=== PATIENT | male | born 1975 | race American Indian/Alaskan Native ===

== ENCOUNTER 2021-05-10 10:27 | Emergency (ER) | payer MEDICARE ==
[2021-05-10 12:07] VITALS: BP 132/79
--- NOTE | 2021-05-10 12:55 | Emergency Department Report ---
ED General Adult HPI - General Chief complaint: High BP Stated complaint: BLOOD PRESSURE HIGH Time Seen by Provider: 05/10/21 12:08 Source: patient Mode of arrival: Ambulatory Limitations: No Limitations - History of Present Illness Initial comments: This is a 45-year-old male nontoxic, well nourished in appearance, no acute signs of distress presents to the ED for high blood pressure. Patient otherwise denies any symptoms or complaints. Patient stated he took his blood pressure this morning and stated was reading in the high 100s. Patient otherwise denies taking previous blood pressure readings. Patient denies any chest pain, shortness of breath, fever, chills, nausea, vomiting, headache, stiff neck, numbness, tingling or blurry vision. Patient denies any allergies or significant past medical history. Patient also stated that he has a primary care doctor appointment on the of this month. Severity scale (0 -10): 0 Improves with: none Worsens with: none Associated Symptoms: denies other symptoms. denies: confusion, chest pain, c ough, diaphoresis, fever/chills, headaches, loss of appetite, malaise, nausea/vomiting, rash, seizure, shortness of breath, syncope, weakness Treatments Prior to Arrival: none - Related Data Allergies Allergy/AdvReac Type Severity Reaction Status Date / Time No Known Allergies Allergy Unverified 05/10/21 12:01 ED Review of Systems ROS: Stated complaint: BLOOD PRESSURE HIGH Other details as noted in HPI Comment: All other systems reviewed and negative Constitutional: denies: chills, fever Eyes: denies: eye pain, eye discharge, vision change ENT: denies: ear pain, throat pain Respiratory: denies: cough, shortness of breath, wheezing Cardiovascular: denies: chest pain, palpitations Endocrine: no symptoms reported Gastrointestinal: denies: abdominal pain, nausea, diarrhea Genitourinary: denies: urgency, dysuria Musculoskeletal: denies: back pain, joint swelling, arthralgia Skin: denies: rash, lesions Neurological: denies: headache, weakness, paresthesias Psychiatric: denies: anxiety, depression Hematological/Lymphatic: denies: easy bleeding, easy bruising ED Physical Exam - General Limitations: No Limitations General appearance: alert, in no apparent distress - Head Head exam: Present: atraumatic, normocephalic - Eye Eye exam: Present: normal appearance - ENT ENT exam: Present: normal exam - Neck Neck exam: Present: normal inspection, full ROM. Absent: lymphadenopathy - Respiratory Respiratory exam: Present: normal lung sounds bilaterally. Absent: respiratory distress, wheezes, rales, rhonchi, stridor, chest wall tenderness, accessory muscle use, decreased breath sounds, prolonged expiratory - Cardiovascular Cardiovascular Exam: Present: regular rate, normal rhythm, normal heart sounds. Absent: bradycardia, tachycardia, irregular rhythm, systolic murmur, diastolic murmur, rubs, gallop - GI/Abdominal GI/Abdominal exam: Present: soft, normal bowel sounds. Absent: distended, tenderness, guarding, rebound, rigid - Extremities Exam Extremities exam: Present: normal inspection, full ROM - Back Exam Back exam: Present: normal inspection, full ROM. Absent: tenderness, CVA tenderness (R), CVA tenderness (L), muscle spasm, paraspinal tenderness, vertebral tenderness, rash noted - Neurological Exam Neurological exam: Present: alert, oriented X3, normal gait - Psychiatric Psychiatric exam: Present: normal affect, normal mood - Skin Skin exam: Present: warm, dry, intact, normal color. Absent: rash ED Course Vital Signs 05/10/21 12:06 Temperature 98 F Pulse Rate 67 Respiratory 20 Rate Blood Pressure 132/79 [Right] O2 Sat by Pulse 99 Oximetry - Reevaluation(s) Reevaluation #1: 05/10/21 12:55 Patient is speaking in full sentences with no signs of distress noted. ED Medical Decision Making - Medical Decision Making 45-year-old that presents with concerns of high blood pressure. Patient is stable and was examined by me. Physical exam otherwise is unremarkable. Currently blood pressure and vital signs in the ED are within normal limits. According to ACEP: (1) in ED patients with asymptomatic markedly elevated blood pressure, routine screening for acute target organ injury (eg, serum creatinine, urinalysis, ECG) is not required. (1) In patients with asymptomatic markedly elevated blood pressure, routine ED medical intervention is not required. Patient was instructed to follow-up with a primary care doctor in 3-5 days or if symptoms worsen and continue return to emergency room as soon as possible. At time of discharge, the patient does not seem toxic or ill in appearance. No acute signs of distress noted. Patient agrees to discharge treatment plan of care. No further questions noted by the patient. The patient was evaluated in the emergency department for symptoms described in the history of present illness. He/she was evaluated in the context of the global COVID-19 pandemic, which necessitated consideration that the patient might be at risk for infection with the virus that causes COVID-19. Institutional protocols and algorithms that pertain to the evaluation of patients at risk for COVID-19 are in a state of rapid change based on information released by regulatory bodies including the CDC and federal and state organizations. These policies and algorithms were followed during the patient's care in the emergency department. Please note that these policies, procedures and recommendations changed on a rapid basis. Critical care attestation.: If time is entered above; I have spent that time in minutes in the direct care of this critically ill patient, excluding procedure time. ED Disposition Clinical Impression: Normal physical exam Disposition: 01 HOME / SELF CARE / HOMELESS Is pt being admited?: No Does the pt Need Aspirin: No Condition: Stable Additional Instructions: Follow-up with a primary care doctor in 3-5 days or if symptoms worsen and continue return to emergency room as soon as possible. Referrals: PRIMARY MD ELIZA [Primary Care Provider] - 3-5 Days CHELSEA ELAINE MD [Staff Physician] - 3-5 Days Time of Disposition: 12:56
== END 2021-05-10 13:12 | disposition home or self-care (01) ==
LOC: ED 10:27
DX: R03.0 Elevated blood-pressure reading, without diagnosis of hypertension (principal)
CPT/HCPCS: 99282

== ENCOUNTER 2021-10-05 16:46 | Emergency (ER) | payer MEDICAID, MEDICARE ==
[2021-10-05 17:16] VITALS: BP 164/86
[2021-10-06] MEDS ORDERED: PENICILLIN G BENZATHINE 1.2 MILLION UNIT/2 ML INJ IM STA (00:15)
--- NOTE | 2021-10-06 00:22 | Emergency Department Report ---
ED Male HPI - General Chief complaint: Sore Throat Stated complaint: STREP THROAT/STD CHECK Source: patient Mode of arrival: Ambulatory Limitations: No Limitations - History of Present Illness Initial comments: 45-year-old male presents emerged department complaining of a few day history of progressively worsening sore throat of an unknown etiology associated with odynophagia and dysphagia. Ports no fever, chills, sweats, chest pain, palpitations, hemoptysis, hematemesis, hematochezia Complaint: penile discharge, other - Related Data Allergies Allergy/AdvReac Type Severity Reaction Status Date / Time No Known Allergies Allergy Unverified 05/10/21 12:01 ED Review of Systems ROS: Stated complaint: STREP THROAT/STD CHECK Other details as noted in HPI Comment: All other systems reviewed and negative ED Past Medical Hx - Past Medical History Previous Medical History?: No - Surgical History Past Surgical History?: No - Social History Smoking Status: Current Every Day Smoker ED Physical Exam - General Limitations: No Limitations General appearance: alert, in no apparent distress - Head Head exam: Present: atraumatic, normocephalic - Eye Eye exam: Present: normal appearance - ENT ENT exam: Present: mucous membranes moist, other (Pharynx red with some erythema and swelling no exudate noted. Tongue uvula midline. No stridor. Tongue.) - Neck Neck exam: Present: normal inspection, lymphadenopathy - Respiratory Respiratory exam: Present: normal lung sounds bilaterally. Absent: respiratory distress - Cardiovascular Cardiovascular Exam: Present: regular rate, normal rhythm. Absent: systolic murmur, diastolic murmur, rubs, gallop - GI/Abdominal GI/Abdominal exam: Present: soft, normal bowel sounds - Rectal Rectal exam: Present: deferred - Extremities Exam Extremities exam: Present: normal inspection - Back Exam Back exam: Present: normal inspection - Neurological Exam Neurological exam: Present: alert, oriented X3 - Psychiatric Psychiatric exam: Present: normal affect, normal mood - Skin Skin exam: Present: warm, dry, intact, normal color. Absent: rash ED Course Vital Signs 10/05/21 17:11 Temperature 100.5 F H Pulse Rate 65 Respiratory 16 Rate Blood Pressure 164/86 O2 Sat by Pulse 98 Oximetry Critical care attestation.: If time is entered above; I have spent that time in minutes in the direct care of this critically ill patient, excluding procedure time. ED Disposition Clinical Impression: Pharyngitis, Possible exposure to STD Disposition: HOME / SELF CARE / HOMELESS Is pt being admited?: No Does the pt Need Aspirin: No Condition: Stable Instructions: Pharyngitis, Sore Throat Additional Instructions: Please be sure to follow-up with health department for your full STD panel [facility]
[2021-10-06 01:13] LABS: Bilirubin,Urine NEG (Negative); Blood,Urine NEG (Negative); Color,Urine Yellow (Yellow); Protein,Urine <15 mg/dL mg/dL (Negative); Urobilinogen,Urine < 2.0 mg/dL (<2.0)
[2021-10-06 01:25] LABS: Mucus,Urine FEW /HPF
== END 2021-10-06 01:15 | disposition home or self-care (01) ==
LOC: ED 16:46
DX: J02.9 Acute pharyngitis, unspecified (principal); Z20.2 Contact with and (suspected) exposure to infections with a predominantly sexual mode of transmission; F17.290 Nicotine dependence, other tobacco product, uncomplicated
CPT/HCPCS: 81001; 87086; 96372; 99283; J0561

== ENCOUNTER 2021-12-24 09:47 | Emergency (ER) | payer SELFPAY ==
[2021-12-24 11:19] VITALS: BP 158/77
[2021-12-24] MEDS ORDERED: LIDOCAINE (1%) 10 MG/1 ML VIAL 20 ML MDV INFILTRATI ONE (12:44)
[2021-12-24] MEDS ORDERED: LIDOCAINE-MPF (1%) 10 MG/1 ML VIAL 5 ML INFILTRATI ONE (12:44)
--- NOTE | 2021-12-24 12:45 | Emergency Department Report ---
Abscess Boil HPI - HPI Chief Complaint: Skin/Abscess/Foreign Body Stated Complaint: BOIL /IRRATION WHEN URINE Time Seen by Provider: 12/24/21 12:43 Duration: >1 Week Location: Other Severity: Mild History: Yes Pain, Yes Purulent Drainage, No Fever, No Numbness, No Foreign Body, No Previous History, No Insect Bite HPI: 46 YO COMES TO ER WITH 2 CONCERNS: 1. CO FOR STD- NO DISCHARGE. 2. ABSCESS ON CHEST THAT HE HAD OPENED HIMSELF BUT STILL HAVING PAIN. NO DRAINAGE AT THIS TIME. NO FEVER. NO CHILLS Home Medications: Previous Rx's Medication Instructions Recorded Last Taken Type cephALEXin [Keflex] 500 mg PO Q12HR #20 cap 12/24/21 Unknown Rx Allergies/Adverse Reactions: Allergies Allergy/AdvReac Type Severity Reaction Status Date / Time No Known Allergies Allergy Verified 12/24/21 11:19 ED Review of Systems ROS: Stated complaint: BOIL /IRRATION WHEN URINE Other details as noted in HPI Comment: All other systems reviewed and negative ED Past Medical Hx - Past Medical History Previous Medical History?: No - Surgical History Past Surgical History?: No - Family History Family history: no significant - Social History Smoking Status: Current Every Day Smoker - Medications Home Medications: Home Medications Medication Instructions Recorded Confirmed Last Taken Type cephALEXin [Keflex] 500 mg PO Q12HR #20 cap 12/24/21 Unknown Rx ED Abscess Boil Physical Exam - Exam General: Vital signs noted. No distress. Alert and acting appropriately. Size: 5 cm Exam: Yes Tenderness, Yes Fluctuance, Yes Normal Neurologic Exam, Yes Normal Circulation, No Surrounding Cellulites/Erythema, No Lymphangitis, No Crepitation, No Heart Murmur I & D Note - I & D Note I & D Note: 1% LIDO 3 ML. WOUND CLEANED. OPENED WITH 10 BLADE. HEMOSTATS TO EXPLORE FOR SAC OF DRAINAGE. MODERATE AMOUNT DISCHARGE. TOLERATED WELL ED Course Vital Signs 12/24/21 11:14 Temperature 97.7 F Pulse Rate 75 Respiratory 18 Rate Blood Pressure 158/77 [Right] O2 Sat by Pulse 98 Oximetry Critical care attestation.: If time is entered above; I have spent that time in minutes in the direct care of this critically ill patient, excluding procedure time. ED Medical Decision Making - Medical Decision Making I/D OF CHEST ABSCESS Vital Signs 12/24/21 11:14 Temperature 97.7 F Pulse Rate 75 Respiratory 18 Rate Blood Pressure 158/77 [Right] O2 Sat by Pulse 98 Oximetry UA PENDING ROCEPHIN 1 GM IM PT INFORMED WE DO NOT DO EMPIRIC STD TESTING HE IS GOING HOME ON KEFLEX FOR ABSCESS CALL IF URINE CULTURE REQUIRES CHANGE IN ANTIBIOTICS DC HOME WITH DC PLAN OF CARE INCLUDING DIET, MEDS, ACTIVITY AND FOLLOW UP - Differential Diagnosis SIMPLE ABSCESS/STI CONCERNS ED Disposition Clinical Impression: Skin abscess, Concern about STD in male without diagnosis Disposition: HOME / SELF CARE / HOMELESS Is pt being admited?: No Does the pt Need Aspirin: No Condition: Stable Instructions: Skin Abscess Additional Instructions: KEEP WOUND CLEAN AND DRY SOAK WITH EPSOM SALTS WE DISCUSSED MOTRIN OR TYLENOL FOR PAIN ANTIBIOTICS ORDERED TODAY UNTIL GONE Prescriptions: cephALEXin [Keflex] 500 mg PO Q12HR #20 cap Referrals: CHARLINE GARNICA MD [Primary Care Provider] - 3-5 Days CHELSEA ELAINE MD [Staff Physician] - 3-5 Days Forms: Work/School Release Form(ED) Time of Disposition: 15:36
[2021-12-24] MEDS ORDERED: HYDROcodone/ACETAMINOPHEN 5-325 MG TAB PO ONE (14:00)
[2021-12-24] MEDS ORDERED: TETANUS,DIPHTHERIA TOXOID ADULT 0.5 ML INJ IM SCH (14:00)
[2021-12-24 16:46] LABS: Mucus,Urine FEW /HPF
[2021-12-24 16:49] LABS: Color,Urine Straw (Yellow)
== END 2021-12-24 18:58 | disposition home or self-care (01) ==
LOC: ED 09:47
DX: L02.91 Cutaneous abscess, unspecified (principal); Z20.2 Contact with and (suspected) exposure to infections with a predominantly sexual mode of transmission; F17.200 Nicotine dependence, unspecified, uncomplicated
CPT/HCPCS: 81001; 96372; 99283; J0696; J3490

== ENCOUNTER 2022-01-07 17:28 | Emergency (ER) | payer MEDICAID ==
[2022-01-07 17:53] VITALS: BP 141/85
[2022-01-07] MEDS ORDERED: IBUPROFEN 800 MG TAB PO ONE (21:24)
--- NOTE | 2022-01-07 22:07 | XRay Report ---
CHEST 2 VIEWS INDICATION / CLINICAL INFORMATION: fever cough. COMPARISON: None available. FINDINGS: SUPPORT DEVICES: None. HEART / MEDIASTINUM: No significant abnormality. LUNGS / PLEURA: No significant pulmonary or pleural abnormality. No pneumothorax. ADDITIONAL FINDINGS: Coarse calcification in the right upper quadrant within the liver. IMPRESSION: 1. No acute findings. 2. Coarse calcifications in the right upper quadrant in the region of the liver. Findings could be re lated to prior granulomatous disease, calcified hemangioma, or potentially other calcified lesion. Re commend further evaluation with multiphase liver CT on a nonemergent/outpatient basis. Signer Name: Chepe Alvarez MD Signed: 01/07/2022 10:02 PM Workstation Name: [email or web address]
[2022-01-07 23:11] LABS: Basophils % (Auto) 0.3 % (0.0-1.8); Eosinophils % (Auto) 0.8 % (0.0-4.3); Hematocrit 40.3 % (35.5-45.6); Hemoglobin 13.2 gm/dl (11.8-15.2); Lymphocytes # (Auto) 0.6 K/mm3 (1.2-5.4); Lymphocytes % (Auto) 9.6 % (13.4-35.0); Mean Corpuscular HGB Conc 33 % (32-34); Mean Corpuscular Volume 96 fl (84-94); Monocytes # (Auto) 0.6 K/mm3 (0.0-0.8); Monocytes % (Auto) 9.2 % (0.0-7.3); Platelet Count 246 K/mm3 (140-440); Red Blood Count 4.22 M/mm3 (3.65-5.03); Red Cell Distribution Width 13.9 % (13.2-15.2)
[2022-01-07 23:31] LABS: Alanine Aminotransferase 31 units/L (7-56); Albumin 4.5 g/dL (3.9-5); BUN/Creatinine Ratio 14; Blood Urea Nitrogen 13 mg/dL (9-20); Calcium 8.8 mg/dL (8.4-10.2); Hemolysis Index 16
--- NOTE | 2022-01-07 23:56 | Emergency Department Report ---
ED General Adult HPI - General Chief complaint: Fever Stated complaint: COVID /LEG PAIN Time Seen by Provider: 01/07/22 21:23 Source: patient Mode of arrival: Ambulatory Limitations: No Limitations - History of Present Illness Initial comments: Patient 46-year-old male who presents for fever cough body aches extremity pain times today. Patient denies history of asthma denies other medical history. Patient is not COVID vaccinated. Patient denies nausea or vomiting. There is no chest pain or shortness of breath. Symptoms are exacerbated by activity. Symptoms are relieved by nothing tried. Severity scale (0 -10): 7 - Related Data Previous Rx's Medication Instructions Recorded Last Taken Type cephALEXin [Keflex] 500 mg PO Q12HR #20 cap 12/24/21 Unknown Rx Ibuprofen [Motrin 800 MG tab] 800 mg PO Q8HR PRN #30 tablet 01/08/22 Unknown Rx Ondansetron [Zofran Odt] 4 mg PO Q8HR PRN #12 tab.rapdis 01/08/22 Unknown Rx Allergies Allergy/AdvReac Type Severity Reaction Status Date / Time No Known Allergies Allergy Verified 12/24/21 11:19 ED Review of Systems ROS: Stated complaint: COVID /LEG PAIN Other details as noted in HPI Constitutional: chills, fever, malaise Eyes: denies: eye pain, eye discharge, vision change ENT: denies: ear pain, throat pain Respiratory: denies: cough, shortness of breath, wheezing Cardiovascular: denies: chest pain, palpitations Endocrine: no symptoms reported Gastrointestinal: denies: abdominal pain, nausea, vomiting, diarrhea Genitourinary: denies: urgency, dysuria Musculoskeletal: other Skin: denies: rash, lesions Neurological: denies: headache, weakness, numbness, paresthesias, confusion, vertigo Psychiatric: denies: anxiety, depression Hematological/Lymphatic: denies: easy bleeding, easy bruising ED Past Medical Hx - Past Medical History Previous Medical History?: No - Surgical History Past Surgical History?: No - Social History Smoking Status: Unknown if ever smoked Substance Use Type: None - Medications Home Medications: Home Medications Medication Instructions Recorded Confirmed Last Taken Type cephALEXin [Keflex] 500 mg PO Q12HR #20 cap 12/24/21 Unknown Rx Ibuprofen [Motrin 800 MG tab] 800 mg PO Q8HR PRN #30 tablet 01/08/22 Unknown Rx Ondansetron [Zofran Odt] 4 mg PO Q8HR PRN #12 tab.holdendis 01/08/22 Unknown Rx ED Physical Exam - General Limitations: No Limitations General appearance: alert, in no apparent distress - Head Head exam: Present: normocephalic, normal inspection - Eye Eye exam: Present: PERRL, EOMI Pupils: Present: normal accommodation - ENT ENT exam: Present: normal orophraynx, mucous membranes moist - Neck Neck exam: Present: normal inspection, full ROM. Absent: tenderness, lymphade nopathy - Respiratory Respiratory exam: Present: normal lung sounds bilaterally. Absent: respiratory distress, wheezes, stridor - Cardiovascular Cardiovascular Exam: Present: regular rate, normal rhythm, normal heart sounds. Absent: systolic murmur, diastolic murmur, rubs, gallop - GI/Abdominal GI/Abdominal exam: Present: soft. Absent: distended, tenderness - Rectal Rectal exam: Present: deferred - Extremities Exam Extremities exam: Present: normal inspection, full ROM, normal capillary refill. Absent: tenderness - Back Exam Back exam: Present: normal inspection, full ROM. Absent: CVA tenderness (R), CVA tenderness (L) - Neurological Exam Neurological exam: Present: alert, oriented X3, CN II-XII intact, normal gait, reflexes normal. Absent: motor sensory deficit - Expanded Neurological Exam Expanded Patient oriented to: Present: person, place, time Speech: Present: fluid speech Motor strength exam: RUE: 5, LUE: 5, RLE: 5, LLE: 5 Best Eye Response (Mary): (4) open spontaneously Best Motor Response (Mary): (6) obeys commands Best Verbal Response (Mary): (5) oriented [place] Total: 15 - Psychiatric Psychiatric exam: Present: normal affect, normal mood - Skin Skin exam: Present: warm, dry, intact, normal color. Absent: rash ED Course Vital Signs 01/07/22 17:51 Temperature 101.1 F H Pulse Rate 93 H Respiratory 18 Rate Blood Pressure 141/85 O2 Sat by Pulse 100 Oximetry ED Medical Decision Making - Lab Data Result diagrams: 01/07/22 22:38 01/07/22 22:38 Labs 01/07/22 01/07/22 22:38 22:38 WBC 6.2 RBC 4.22 Hgb 13.2 Hct 40.3 MCV 96 H MCH 31 MCHC 33 RDW 13.9 Plt Count 246 Lymph % (Auto) 9.6 L Frontier % (Auto) 9.2 H Eos % (Auto) 0.8 Baso % (Auto) 0.3 Lymph # (Auto) 0.6 L Frontier # (Auto) 0.6 Eos # (Auto) 0.0 Baso # (Auto) 0.0 Seg Neutrophils % 80.1 H Seg Neutrophils # 5.0 Sodium 138 Potassium 4.0 Chloride 103.9 Carbon Dioxide 22 Anion Gap 16 BUN 13 Creatinine 0.9 Estimated GFR > 60 BUN/Creatinine Ratio 14 Glucose 85 Calcium 8.8 Total Bilirubin 0.30 AST 39 ALT 31 Alkaline Phosphatase 74 Total Protein 7.2 Albumin 4.5 Albumin/Globulin Ratio 1.7 Labs 01/07/22 01/07/22 01/08/22 22:38 22:38 Unknown WBC 6.2 RBC 4.22 Hgb 13.2 Hct 40.3 MCV 96 H MCH 31 MCHC 33 RDW 13.9 Plt Count 246 Lymph % (Auto) 9.6 L Frontier % (Auto) 9.2 H Eos % (Auto) 0.8 Baso % (Auto) 0.3 Lymph # (Auto) 0.6 L Frontier # (Auto) 0.6 Eos # (Auto) 0.0 Baso # (Auto) 0.0 Seg Neutrophils % 80.1 H Seg Neutrophils # 5.0 Sodium 138 Potassium 4.0 Chloride 103.9 Carbon Dioxide 22 Anion Gap 16 BUN 13 Creatinine 0.9 Estimated GFR > 60 BUN/Creatinine Ratio 14 Glucose 85 Calcium 8.8 Total Bilirubin 0.30 AST 39 ALT 31 Alkaline Phosphatase 74 Total Protein 7.2 Albumin 4.5 Albumin/Globulin Ratio 1.7 Urine Color Yellow Urine Turbidity Clear Specific Economy (Man) 1.015 Ur Protein (Man) Negative Ur Ketones (Man) 2+ Ur Nitrite (Man) Negative Ur Reducing Substances Not Reportable Urine Bilirubin (Man) Negative Urine Ictotest Not Reportable Leukocyte Esterase (Man) Negative Urine WBC (Auto) 2.0 Urine RBC (Auto) 3.0 U Epithel Cells (Auto) 1.0 Urine RBC (Manual) Negative Urine Mucus Few - Radiology Data Radiology results: report reviewed, image reviewed CHEST 2 VIEWS INDICATION / CLINICAL INFORMATION: fever cough. COMPARISON: None available. FINDINGS: SUPPORT DEVICES: None. HEART / MEDIASTINUM: No significant abnormality. LUNGS / PLEURA: No significant pulmonary or pleural abnormality. No pneumothorax. ADDITIONAL FINDINGS: Coarse calcification in the right upper quadrant within the liver. IMPRESSION: 1. No acute findings. 2. Coarse calcifications in the right upper quadrant in the region of the liver. Findings could be related to prior granulomatous disease, calcified hemangioma, or potentially other calcified lesion. Recommend further evaluation with multiphase liver CT on a nonemergent/outpatient basis. Signer Name: Yony Curry MD Signed: 01/07/2022 10:02 PM Workstation Name: [email or web address] Transcribed By: MAGALY Dictated By: YONY CURRY MD Electronically Authenticated By: YONY CURRY MD Signed Date/Time: 01/07/222201 DD/ 99 TD/TT: - Medical Decision Making X-ray:no infiltrates no opacities. Labs noted as above nonactionable this is likely viral syndrome. Plan DC to home, continue to hydrate, follow-up with primary care doctor in 2 to 3 days. Patient verbalized agreement and understanding of discharge plan. Patient DC'd home in stable condition at this time. Critical care attestation.: If time is entered above; I have spent that time in minutes in the direct care of this critically ill patient, excluding procedure time. ED Disposition Clinical Impression: Viral illness Disposition: HOME / SELF CARE / HOMELESS Is pt being admited?: No Does the pt Need Aspirin: No Condition: Stable Instructions: Viral Illness, Adult Additional Instructions: Take medications as prescribed, hydrate as directed. Return to emergency department should symptoms worsen. Prescriptions: Ibuprofen [Motrin 800 MG tab] 800 mg PO Q8HR PRN #30 tablet PRN Reason: pain fever Ondansetron [Zofran Odt] 4 mg PO Q8HR PRN #12 tab.rapdis PRN Reason: Nausea Referrals: SPENCER SCRUGGS MD [Staff Physician] - 3-5 Days Forms: Work/School Release Form(ED) Time of Disposition: 01:33
[2022-01-08 00:50] LABS: Mucus,Urine FEW /HPF
[2022-01-08 01:00] LABS: Color,Urine Yellow (Yellow)
== END 2022-01-08 01:47 | disposition home or self-care (01) ==
LOC: ED 17:28
DX: B34.9 Viral infection, unspecified (principal)
CPT/HCPCS: 36415; 71046; 80053; 81001; 85025; 99283

== ENCOUNTER 2022-01-08 06:36 | Emergency (ER) | payer MEDICAID ==
[2022-01-08] MEDS ORDERED: SODIUM CHLORIDE 0.9% 1000 ML 1,000 ML IV ONE (12:54)
[2022-01-08] MEDS ORDERED: ONDANSETRON 4 MG/2 ML INJ IV ONE (12:54)
[2022-01-08] MEDS ORDERED: dexAMETHasone 4 MG/ML VIAL IV ONE (12:54)
--- NOTE | 2022-01-08 13:42 | Emergency Department Report ---
ED General Adult HPI - General Chief complaint: Pain General Stated complaint: EMESIS/FLU SX Time Seen by Provider: 01/08/22 12:38 Source: patient Mode of arrival: Ambulatory Limitations: No Limitations - History of Present Illness Initial comments: Patient is a 46-year-old male who presents for headache myalgias nausea vomiting rhinorrhea and cough since yesterday. He has had a fever with a T-max of 1-1.0. He was seen here yesterday for same thing and had CBC CMP chest x-ray and urine all of which were normal with the exception of ketonuria. He states he has not been able to keep anything down except for water since yesterday. He was sent out at 2:00 this morning with a prescription for ondansetron but has not filled it yet. Onset/Timin -: days(s) Improves with: none Worsens with: none Associated Symptoms: cough, fever/chills, headaches, loss of appetite, malaise, nausea/vomiting. denies: confusion, chest pain, diaphoresis, rash, seizure, shortness of breath, syncope - Related Data Previous Rx's Medication Instructions Recorded Last Taken Type cephALEXin [Keflex] 500 mg PO Q12HR #20 cap 12/24/21 Unknown Rx Ibuprofen [Motrin 800 MG tab] 800 mg PO Q8HR PRN #30 tablet 01/08/22 Unknown Rx Ondansetron [Zofran Odt] 4 mg PO Q8HR PRN #12 tab.rapdis 01/08/22 Unknown Rx Allergies Allergy/AdvReac Type Severity Reaction Status Date / Time No Known Allergies Allergy Verified 01/08/22 08:18 ED Review of Systems ROS: Stated complaint: EMESIS/FLU SX Other details as noted in HPI Comment: All other systems reviewed and negative Constitutional: see HPI Eyes: denies: eye pain, eye discharge, vision change ENT: congestion. denies: ear pain, throat pain, epistaxis Respiratory: see HPI. denies: shortness of breath Cardiovascular: denies: chest pain, palpitations, edema Endocrine: denies: unexplained weight gain, unexplained weight loss Gastrointestinal: as per HPI. denies: diarrhea, constipation, hematemesis, melena, hematochezia Genitourinary: denies: urgency, dysuria, frequency Musculoskeletal: as per HPI, myalgia Skin: denies: rash, pruritus Neurological: as per HPI, headache, weakness. denies: numbness, paresthesias, confusion, vertigo Psychiatric: denies: anxiety, depression Hematological/Lymphatic: denies: easy bleeding, easy bruising ED Past Medical Hx - Past Medical History Previous Medical History?: No - Surgical History Past Surgical History?: No - Social History Smoking Status: Unknown if ever smoked Substance Use Type: None - Medications Home Medications: Home Medications Medication Instructions Recorded Confirmed Last Taken Type cephALEXin [Keflex] 500 mg PO Q12HR #20 cap 12/24/21 Unknown Rx Ibuprofen [Motrin 800 MG tab] 800 mg PO Q8HR PRN #30 tablet 01/08/22 Unknown Rx Ondansetron [Zofran Odt] 4 mg PO Q8HR PRN #12 tab.rapdis 01/08/22 Unknown Rx ED Physical Exam - General Limitations: No Limitations General appearance: alert, in no apparent distress - Head Head exam: Present: atraumatic, normocephalic - Eye Eye exam: Present: normal appearance - ENT ENT exam: Present: mucous membranes moist - Neck Neck exam: Present: normal inspection - Respiratory Respiratory exam: Present: normal lung sounds bilaterally. Absent: respiratory distress - Cardiovascular Cardiovascular Exam: Present: regular rate, normal rhythm. Absent: systolic murmur, diastolic murmur, rubs, gallop - GI/Abdominal GI/Abdominal exam: Present: soft, normal bowel sounds - Rectal Rectal exam: Present: deferred - Extremities Exam Extremities exam: Present: normal inspection - Back Exam Back exam: Present: normal inspection - Neurological Exam Neurological exam: Present: alert, oriented X3 - Psychiatric Psychiatric exam: Present: normal affect, normal mood - Skin Skin exam: Present: warm, dry, intact, normal color. Absent: rash ED Course Vital Signs 01/08/22 01/08/22 01/08/22 08:11 14:06 15:58 Temperature 99 F 98.6 F 99.1 F Pulse Rate 70 63 63 Respiratory 18 16 16 Rate Blood Pressure 127/82 107/77 128/56 [Left] O2 Sat by Pulse 99 99 98 Oximetry - Reevaluation(s) Reevaluation #1: 01/08/22 15:13 Patient is a 46-year-old male with viral syndrome who was seen here yesterday and work-up was positive only for ketones in his urine. He is still not been able to keep anything down, but did not fill his ondansetron prescription. Today he was given IV fluids ondansetron and a dose of Decadron with the plan for discharge. He is unvaccinated and I recommend that he do a COVID test daily for the next 3 days, and get both the flu and COVID vaccine once he is well. Guaifenesin 1200 mg twice daily, warm compresses to the sinuses, warm salt water gargles, nasal saline, Tylenol or Motrin as needed for fever or pain. Fill the ondansetron you were given yesterday. Drink plenty of fluids and if unable to eat due to decreased appetite recommend Ensure or boost protein supplement drink. Return if any worsening of symptoms. ED Medical Decision Making - Medical Decision Making Patient is a 46-year-old male with viral syndrome who was seen here yesterday and work-up was positive only for ketones in his urine. He is still not been able to keep anything down, but did not fill his ondansetron prescription. T jitendra he was given IV fluids ondansetron and a dose of Decadron with the plan for discharge. He is unvaccinated and I recommend that he do a COVID test daily for the next 3 days, and get both the flu and COVID vaccine once he is well. Guaifenesin 1200 mg twice daily, warm compresses to the sinuses, warm salt water gargles, nasal saline, Tylenol or Motrin as needed for fever or pain. Fill the ondansetron you were given yesterday. Drink plenty of fluids and if unable to eat due to decreased appetite recommend Ensure or boost protein supplement drink. Return if any worsening of symptoms. 01/08/22 15:15 - Differential Diagnosis Viral syndrome. COVID. Flu. Critical care attestation.: If time is entered above; I have spent that time in minutes in the direct care of this critically ill patient, excluding procedure time. ED Disposition Clinical Impression: Viral syndrome, Suspected COVID-19 virus infection Disposition: HOME / SELF CARE / HOMELESS Is pt being admited?: No Condition: Stable Instructions: COVID-19, Viral Respiratory Infection, [id number], COVID-19: How to Protect Yourself and Others - [facility] [place] Additional Instructions: Get COVID test daily for the next 3 days (these are free from the government), and get both the flu and COVID vaccine once well. Guaifenesin 1200 mg twice daily, warm compresses to the sinuses, warm salt water gargles, nasal saline, Tylenol or Motrin as needed for fever or pain. Fill the ondansetron you were given yesterday. Drink plenty of fluids and if unable to eat due to decreased appetite recommend Ensure or boost protein supplement drink. Return if any worsening of symptoms. 01/08/22 15:15 Referrals: SASHA BRAVO MD [Staff Physician] - 3-5 Days Forms: Work/School Release Form(ED) Time of Disposition: 15:18
[2022-01-08 16:01] VITALS: BP 128/56
== END 2022-01-08 16:00 | disposition home or self-care (01) ==
LOC: ED 06:36
DX: B34.9 Viral infection, unspecified (principal); Z20.822 Contact with and (suspected) exposure to COVID-19
CPT/HCPCS: 96361; 96374; 96375; 99282; J1100; J2405; J7030